=== PATIENT | male | born 1950 | race Caucasian/White ===

== ENCOUNTER 2024-01-20 12:35 | Outpatient (CLI) | payer MEDICARE, OTHER | END 2024-01-20 12:36 | disposition home or self-care (01) | LOC: CSHULT 12:35 | PROVIDERS: ATTEND Internal Medicine | DX: R01.1 Cardiac murmur, unspecified (principal); I51.7 Cardiomegaly; I38 Endocarditis, valve unspecified | CPT/HCPCS: 93306 ==

== ENCOUNTER 2024-05-05 11:41 | Outpatient (CLI) | payer MEDICARE, OTHER | END 2024-05-05 11:42 | disposition home or self-care (01) | LOC: CSHRAD 11:41 | PROVIDERS: ATTEND Internal Medicine | DX: R05.3 Chronic cough (principal) | CPT/HCPCS: 71046 ==